=== PATIENT | male | born 1985 ===

== ENCOUNTER 2020-09-10 02:19 | Emergency (ER) | payer SELFPAY ==
[2020-09-10 02:33] VITALS: O2SAT 98
[2020-09-10] MEDS ORDERED: XYLOCAINE 2% Uro-Jet ONE (03:16)
[2020-09-10] MEDS ORDERED: TORAdol 30 mg Injection IM ONE (03:47)
--- NOTE | 2020-09-10 03:49 | ERPHSYRPT ---
- History of Present Illness Time Seen by Provider: 09/10/20 02:53 Source: patient Exam Limitations: no limitations Physician History: 35 years old male with penile implant 4 weeks ago at [facility], catheter removed almost 2 weeks ago with having difficulty urination couple of days ago where needing temporary catheter and was started on Bactrim for UTI presented in the ER here as patient is unable to urinate for the last 6 to 8 hours. Patient is complaining of moderate to severe sharp pain and suprapubic area with some fullness pressure sensation. Reports having similar symptoms few days ago which relieved with catheterization. Timing/Duration: hour(s) (8), gradual onset, worse Quality: sharpness Onset Location: suprapubic, urethral, scrotal Severity of Pain-Max: severe Severity of Pain-Current: moderate Modifying Factors: Improves With: nothing Associated Symptoms: abdominal pain Prior abdominal problems: similar symptoms Sexual intercourse history: non-contributory Allergies/Adverse Reactions: No Known Drug Allergies Allergy (Unverified 09/10/20 02:33) Home Medications: No Reportable Medications [No Reported Medications] 09/10/20 [History] - Past Medical History Neurological History: No Pertinent History ENT History: No Pertinent History Cardiac History: No Pertinent History Respiratory History: No Pertinent History Endocrine Medical History: Diabetes Type I Musculoskeletal History: No Pertinent History GI Medical History: No Pertinent History History: No Pertinent History Psycho-Social History: No Pertinent History Male Reproductive Disorders: No Pertinent History - Past Surgical History Past Surgical History: Yes Neuro Surgical History: No Pertinent History Cardiac: No Pertinent History Respiratory: No Pertinent History Gastrointestinal: No Pertinent History Genitourinary: No Pertinent History Musculoskeletal: No Pertinent History Male Surgical History: No Pertinent History Other Surgical History: penile implant - Review of Systems Constitutional: No Symptoms Eyes: No Symptoms Respiratory: No Symptoms Cardiac: No Symptoms Abdominal/Gastrointestinal: Abdominal Pain Genitourinary Symptoms: Urinary Retention Musculoskeletal: No Symptoms Skin: No Symptoms Neurological: No Symptoms Psychological: No Symptoms Endocrine: No Symptoms - Nursing Vital Signs Nursing Vital Signs: Initial Vital Signs Temperature 98.4 F 09/10/20 02:31 Pulse Rate 84 09/10/20 02:31 Respiratory Rate 18 09/10/20 02:31 Blood Pressure 155/102 09/10/20 02:31 O2 Sat by Pulse Oximetry 98 09/10/20 02:31 Pain Scale Pain Intensity 8 - Physical Exam General Appearance: no apparent distress, alert Eye Exam: eyes nml inspection Ears, Nose, Throat Exam: normal ENT inspection Neck Exam: normal inspection, supple, full range of motion Respiratory Exam: normal breath sounds, lungs clear Cardiovascular Exam: regular rate/rhythm, normal heart sounds Gastrointestinal/Abdomen Exam: soft, normal bowel sounds, tenderness (Suprapubic with barely palpable bladder) Male Genital Exam: normal genitalia (Penile implant.) Back Exam: normal inspection, normal range of motion Extremity Exam: normal inspection Neurologic Exam: alert, oriented x 3, cooperative Skin Exam: normal color SpO2 Interpretation: normal SpO2: 98 O2 Delivery: Room Air Ordered Tests: Medication Summary Discontinued Medications Generic Name Dose Route Start Last Admin Trade Name Freq PRN Reason Stop Dose Admin Ketorolac Tromethamine 30 mg 09/10/20 03:47 09/10/20 03:55 Toradol 30 Mg Injection IM 09/10/20 03:48 30 mg STAT ONE Administration Ketorolac Tromethamine Confirm 09/10/20 03:51 Toradol 30 Mg Injection Administered 09/10/20 03:52 Dose 30 mg .ROUTE .STK-MED ONE Lidocaine HCl Confirm 09/10/20 03:16 Xylocaine 2% Uro-Jet Administered 09/10/20 03:17 Dose 200 mg .ROUTE .STK-MED ONE - Progress Progress: improved, pain not gone completely, re-examined Progress Note: 09/10/20 03:48 16 [place] coud catheter is placed in, more than 300 cc is drained. Patient is feeling better but still have little discomfort. Has free flow and work but no output. Minimal urine in bladder with ultrasound evaluation. Recommended continue with antibiotics. Patient is given Toradol for symptom go straight to [facility] for further evaluation. No difficulty inflat ing the balloon. 09/10/20 03:50 Counseled pt/family regarding: diagnosis, need for follow-up - Departure Departure Disposition: Home Clinical Impression: Urinary retention Condition: Stable Critical Care Time: No Instructions: Urinary Retention (DC) Additional Instructions: Follow-up with your urologist for reevaluation at [facility] the day. Report in the ER with difficulty urine output or pain in lower abdomen/pubic area.
[2020-09-10] MEDS ORDERED: TORAdol 30 mg Injection ONE (03:51)
[2020-09-10 04:02] VITALS: BP 150/88; PULSE 85
== END 2020-09-10 04:00 | disposition home or self-care (01) ==
LOC: ED 02:19
DX: R33.9 Retention of urine, unspecified (principal)
CPT/HCPCS: 96372; 99283; J1885